=== PATIENT | female | born 1970 | race Caucasian/White ===

== ENCOUNTER 2021-07-02 11:43 | Outpatient (RCR) | payer MEDICAID, SELFPAY ==
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
--- NOTE | 2021-09-09 14:03 | HP.PT.NRP ---
SHANTAL BASILIO was seen in my office for initial evaluation on 07/02/21. The following Plan of Care was established for this patient: Initial Frequency: 1x/Week Initial Duration: 1 Week This patient was last seen in our office 07/02/21. Pertinent comments regarding their Physical therapy will appear below: This patient has not returned to Physical Therapy and is appropriate to return to MD for further follow-up as needed. At this point I will be discontinuing this patient from physical therapy. I would be happy to see this patient again in the future if found appropriate by the physician. Thank you! Brie Ray, PT, Cert MDT Balance/Gait/Functional tests - Balance/Special Test Scores Lower Extremity Functional Score: 12
== END 2021-07-02 19:00 | disposition home or self-care (01) ==
LOC: PT 11:43
PROVIDERS: Referring Provider Orthopaedic Surgery; Visit Provider Orthopaedic Surgery
DX: M17.0 Bilateral primary osteoarthritis of knee (principal); E66.01 Morbid (severe) obesity due to excess calories; G89.4 Chronic pain syndrome
CPT/HCPCS: 97162